=== PATIENT | female | born 1960 | race African-American/Black ===

== ENCOUNTER 2018-08-30 18:24 | Emergency (ER) | payer OTHER ==
[2018-08-30 18:52] VITALS: BP 157/87; PULSE 83; TEMP 97.8; BMI 26.6
--- NOTE | 2018-08-30 18:56 | PDOC ---
Rapid Medical Evaluation Chief Complaint: Pain Time Seen by Provider: 08/30/18 18:54 Medical Evaluation: Allergies Allergy/AdvReac Type Severity Reaction Status Date / Time No Known Allergies Allergy Verified 08/30/18 18:48 Vital Signs Temp Pulse Resp BP Pulse Ox 97.8 F 83 20 157/87 98 08/30/18 18:48 10 18:48 08/30/18 18:48 08/30/18 18:48 08/30/18 18:48 08/30/18 18:54 I have performed a brief in-person evaluation of this patient. The patient presents with a chief complaint of: right upper arm pain and stiffness which has been intermittent for 2 weeks now and unable to lift right arm. Denies trauma or injury Pertinent physical exam findings: mild tenderness to right upper arm I have ordered the following: x-ray of right humerus and shoulder The patient will proceed to the ED for further evaluation. Discharge Disposition - Diagnosis Right arm pain - Referrals Referrals: Eugenia Noland MD [Primary Care Provider] - - Patient Instructions - Post Discharge Activity
--- NOTE | 2018-08-30 20:45 | PDOC ---
History of Present Illness - General Chief Complaint: Pain Stated Complaint: RIGHT ARM PAIN Time Seen by Provider: 08/30/18 18:54 - History of Present Illness Initial Comments: 08/30/18 20:42 58-year-old female without comorbidities presents for evaluation of right shoulder pain 2 weeks without any precipitating traumatic event. She states her pain is worse at night and wakes her up. No radiation of symptoms her pain is well localized to the lateral aspect of the right shoulder and upper arm. Past History - Past Medical History Allergies/Adverse Reactions: Allergies Allergy/AdvReac Type Severity Reaction Status Date / Time No Known Allergies Allergy Verified 08/30/18 18:48 Home Medications: Ambulatory Orders NK [No Known Home Medication] 08/30/18 - Suicide/Smoking/Psychosocial Hx Smoking History: Never smoked Hx Alcohol Use: No Drug/Substance Use Hx: No Review of Systems - Review of Systems Musculoskeletal: Yes: See HPI, Joint Pain All Other Systems: Reviewed and Negative *Physical Exam - Vital Signs Last Vital Signs Temp Pulse Resp BP Pulse Ox 97.8 F 83 20 157/87 98 08/30/18 18:48 08/30/18 18:48 08/30/18 18:48 08/30/18 18:48 08/30/18 18:48 - Physical Exam Comments: 08/30/18 20:42 Cervical spine skin color and temperature are normal range of motion is full and nonpainful. There is no paracervical musculature spasm or tenderness. 5 out of 5 strength in bilateral upper extremities without gross sensorimotor deficits negative spell maneuver bilaterally Right shoulder skin color and temperature are normal range of motion is slightly limited in external rotation and abduction 5 out of 5 strength super spinatus isolation 3 out of 5 with external rotation. Internal rotation is 4 and 5. Positive impingement maneuvers no gross sensorimotor deficits she's neurovascularly intact. Upper extremity compartments are soft and nontender bilaterally. Medical Decision Making - Medical Decision Making 08/30/18 20:44 Right shoulder impingement syndrome possibly rotator cuff injury I'll have him follow-up with orthopedic surgery for further evaluation and treatment is cussed use of anti-inflammatories and Tylenol for pain control *DC/Admit/Observation/Transfer Diagnosis at time of Disposition: Right arm pain, Shoulder impingement syndrome Diagnosis at time of Disposition: (Ruled Out): Impingement syndrome, shoulder, left - Discharge Dispostion Disposition: HOME Condition at time of disposition: Stable Decision to Admit order: No - Referrals Referrals: Eugenia Noland MD [Primary Care Provider] - Mervin White MD [Staff Physician] - - Patient Instructions Printed Discharge Instructions: Shoulder Tendinopathy Additional Instructions: Please take Tylenol and Motrin as directed for pain. Return to the emergency room should symptoms worsen follow-up with orthopedic surgery in 2-3 days for further evaluation and treatment options. - Post Discharge Activity
== END 2018-08-30 20:48 | disposition home or self-care (01) ==
LOC: JERFT 18:24
DX: M75.41 Impingement syndrome of right shoulder (principal)
CPT/HCPCS: 73030-TC-RT-FY; 73060-TC-RT-FY; 99281-25

== ENCOUNTER 2019-08-21 16:29 | Emergency (ER) | payer OTHER ==
[2019-08-21 16:35] VITALS: BP 121/78; PULSE 79; TEMP 98.5; BMI 26.6
--- NOTE | 2019-08-21 16:35 | PDOC ---
Rapid Medical Evaluation Chief Complaint: Pain, Acute Time Seen by Provider: 08/21/19 16:33 Medical Evaluation: Allergies Allergy/AdvReac Type Severity Reaction Status Date / Time No Known Allergies Allergy Verified 08/21/19 16:32 08/21/19 16:34 I have performed a brief in-person evaluation of this patient. The patient presents with a chief complaint of: 2 weeks of L sided knee pain intermittently after running for a long time. Also c/o pain to the back of the knee I have ordered the following: Knee xray and sono doppler The patient will proceed to the ED for further evaluation. Discharge Disposition - Diagnosis Knee pain, acute - Referrals - Patient Instructions - Post Discharge Activity
[2019-08-21] MEDS ORDERED: KETOROLAC TROMETHAMINE 60 MG/2 ML VIAL IM ONE (16:55)
--- NOTE | 2019-08-21 17:03 | PDOC ---
History of Present Illness - General Chief Complaint: Pain, Acute Stated Complaint: KNEES PAIN Time Seen by Provider: 08/21/19 16:33 History Source: Patient - History of Present Illness Occurred: reports: other Severity: reports: moderate Upper Extremity Pain Location: left: other (knee) Past History - Past Medical History Allergies/Adverse Reactions: Allergies Allergy/AdvReac Type Severity Reaction Status Date / Time No Known Allergies Allergy Verified 08/21/19 16:32 Home Medications: Ambulatory Orders Naproxen 500 mg PO BID #30 tablet 08/21/19 CVA: No COPD: No CHF: No DVT: No - Immunization History Immunization Up to Date: Yes - Psycho Social/Smoking Cessation Hx Smoking History: Never smoked Hx Alcohol Use: No Drug/Substance Use Hx: No Review of Systems - Review of Systems Constitutional: No: Chills, Fever Respiratory: No: Shortness of Breath Cardiac (ROS): No: Chest Pain, Palpitations Musculoskeletal: Yes: Joint Pain, Joint Swelling. No: Gout *Physical Exam - Vital Signs Last Vital Signs Temp Pulse Resp BP Pulse Ox 98.5 F 79 18 121/78 98 08/21/19 16:32 08/21/19 16:32 08/21/19 16:32 08/21/19 16:32 08/21/19 16:32 - Physical Exam General Appearance: Yes: Appropriately Dressed. No: Apparent Distress HEENT: positive: Normal Voice Neck: positive: Supple Respiratory/Chest: negative: Respiratory Distress Extremity: positive: Normal Inspection, Swelling (mild swelling diffusely to L knee compared to R knee, no e/o obvious effusion, no hot, red joint), Other ( mild limp). negative: Tender, Calf Tenderness Integumentary: positive: Dry, Warm Neurologic: positive: Fully Oriented, Alert, Normal Mood/Affect Medical Decision Making - Medical Decision Making 08/21/19 16:57 59 yo F, denies any sig pmhx, here with ongoing L knee pain x2 weeks. States pain started 2 weeks ago after descending steps and jogging. Pain located to left knee diffusely, achy and worse with movement and weight bearing. Has not taken anything for the pain. Patient states she has chronic right knee pain but has never had left knee pain in the past. Has never been evaluated for her knee pain in the past per pt. Patient states she has a significant family history of arthritis with multiple family members undergoing knee replacement for same. No obvious risk factors for DVT/PE. No f/c see exam M/l MSK knee pain, i.e arthritis, overuse, strain, etc, no h/o gout, septic join and no e/o infxn today, unlikely DVT given location and duration of pain -pain control -Dc w/ orthopedic f/u Discharge - Discharge Information Problems reviewed: Yes Clinical Impression/Diagnosis: Knee pain, acute Qualifiers: Laterality: right Qualified Code(s): M25.561 - Pain in right knee Condition: Good Disposition: HOME - Additional Discharge Information Prescriptions: Naproxen 500 mg PO BID #30 tablet - Follow up/Referral - Patient Discharge Instructions Patient Printed Discharge Instructions: DI for Knee Pain Additional Instructions: The cause of your knee pain is unclear at this time but you will need further evaluation with an orthopedist. In the meantime take the naproxen as directed - Post Discharge Activity
[2019-08-21] MEDS ORDERED: KETOROLAC TROMETHAMINE 60 MG/2 ML VIAL ONE (17:04)
== END 2019-08-21 17:15 | disposition home or self-care (01) ==
LOC: JERFT 16:29
PROC: 3E0233Z Introduction of Anti-inflammatory into Muscle, Percutaneous Approach (ICD-10-PCS; principal; 2019-08-21)
DX: M25.562 Pain in left knee (principal); R26.89 Other abnormalities of gait and mobility
CPT/HCPCS: 96372; 99281-25

== ENCOUNTER 2020-05-31 16:32 | Emergency (ER) | payer OTHER ==
--- NOTE | 2020-05-31 16:42 | PDOC ---
Rapid Medical Evaluation Chief Complaint: Chest Pain Time Seen by Provider: 05/31/20 16:39 Medical Evaluation: Allergies Allergy/AdvReac Type Severity Reaction Status Date / Time No Known Allergies Allergy Verified 05/31/20 16:39 05/31/20 16:39 The patient presents for substernal chest pain for one week. States the chest pain is worse with movement. Exam: TTP of the chest wall Orders: EKG, defer labs to provider Pt to proceed to the ER for further evaluation Discharge Disposition - Diagnosis Chest wall pain - Referrals - Patient Instructions - Post Discharge Activity
[2020-05-31 16:46] VITALS: TEMP 98.6; BMI 28.1
--- NOTE | 2020-05-31 17:09 | PDOC ---
History of Present Illness - General Chief Complaint: Chest Pain Stated Complaint: CHEST PAIN Time Seen by Provider: 05/31/20 16:39 - History of Present Illness Initial Comments: Amos Leavitt is a 59 y/o female with no reported PMH presenting today with chest pain. Reports that chest pain is right parasternal and has been going on for the past month. Reports that she has been working out more over the past couple of months. Pain is reproducible. No shortness of breath/dizziness. Pain is non exertional. Describes pain as pressure like. No abdominal pain/leg swelling. No dysuria/diarrhea. No headache. PMH: none FamHx: HTN, no hx of ACS SocHx: social smoker (one cigarette with alcohol) Past History - Medical History Allergies/Adverse Reactions: Allergies Allergy/AdvReac Type Severity Reaction Status Date / Time No Known Allergies Allergy Verified 05/31/20 16:39 Home Medications: Ambulatory Orders Naproxen 500 mg PO BID #30 tablet 08/21/19 CVA: No COPD: No CHF: No DVT: No - Immunization History Immunization Up to Date: Yes - Psycho-Social/Smoking History Smoking History: Never smoked Information on smoking cessation initiated: No - Substance Abuse Hx (Audit-C & DAST Scrn) In the last yr the pt used illegal drug/Rx for NonMed reason: No Score: Yes response is considered Positive: 0 Screen Result (Positive result requires Nsg. DAST-10): Negative Review of Systems - Review of Systems Comments:: GENERAL/CONSTITUTIONAL: No fever or chills. No weakness._ HEAD, EYES, EARS, NOSE AND THROAT: No change in vision. No change in hearing. No sore throat._ CARDIOVASCULAR: Reports chest pain. No shortness of breath_ RESPIRATORY: Denies cough, hemoptysis_ GASTROINTESTINAL: No nausea, vomiting, diarrhea or constipation._ GENITOURINARY: No dysuria, frequency, or change in urination._ MUSCULOSKELETAL: No joint or muscle swelling or pain. No neck or back pain._ SKIN: No rash_ NEUROLOGIC: No headache, vertigo, loss of consciousness, or change in strength/sensation._ ENDOCRINE: No increased thirst. No abnormal weight change_ HEMATOLOGIC/LYMPHATIC: No anemia, easy bleeding, or history of blood clots._ ALLERGIC/IMMUNOLOGIC: No hives or skin allergy._ *Physical Exam - Vital Signs Last Vital Signs Temp Pulse Resp BP Pulse Ox 98.6 F 70 17 142/82 99 05/31/20 16:39 05/31/20 16:39 05/31/20 16:39 05/31/20 16:39 05/31/20 16:39 - Physical Exam GENERAL: Awake, alert, and oriented to person/place/time, in no acute distress_ HEAD: No signs of trauma, normocephalic, atraumatic _ EYES: PERRLA, EOMI, sclera anicteric, conjunctiva clear_ ENT: Hearing grossly normal, nares patent, oropharynx clear without exudates. No uvular deviation. Moist mucosa_ NECK: Normal ROM, supple, no lymphadenopathy, JVD, or masses_ LUNGS: No distress, speaks in full sentences, clear to auscultation bilaterally _ CHEST: Point TTP right parasternal with no bruising or trauma or rash. HEART: Regular rate and rhythm, normal S1 and S2, no murmurs appreciated, peripheral pulses normal and equal bilaterally._ ABDOMEN: Soft, nontender, normoactive bowel sounds. No guarding, no rebound. No masses_ EXTREMITIES: Normal inspection, Normal range of motion, no edema. No clubbing or cyanosis_ NEUROLOGICAL: Cranial nerves II through XII grossly intact. Normal speech, normal gait, no focal sensorimotor deficits _ SKIN: Warm, Dry, normal turgor, no rashes or lesions noted_ Heart Score/ECG Review - History History: Slightly suspicious - Electrocardiogram EKG: Normal - Age Age: 45-65 - Risk Factors Based on the list above the patient has:: No risk factors known - Troponin Troponin: </= normal limit - Score Heart Score - Total: 1 ED Treatment Course - LABORATORY CBC & Chemistry Diagram: 05/31/20 17:21 05/31/20 17:21 - ADDITIONAL ORDERS Additional order review: Laboratory Results 05/31/20 05/31/20 19:46 17:21 Sodium 140 Potassium 4.3 Chloride 109 H Carbon Dioxide 23 Anion Gap 8 BUN 15.7 Creatinine 1.1 Est GFR (CKD-EPI)AfAm 62.75 Est GFR (CKD-EPI)NonAf 54.14 Random Glucose 98 Calcium 9.2 Total Bilirubin 0.7 AST 20 ALT 26 Alkaline Phosphatase 81 Creatine Kinase 164 Creatine Kinase Index 1.2 CK-MB (CK-2) 2.0 Troponin I < 0.02 < 0.02 Total Protein 7.1 Albumin 3.7 05/31/20 17:21 RBC 4.10 MCV 94.4 MCHC 33.2 RDW 13.6 MPV 10.3 Neutrophils % 56.8 Lymphocytes % 32.8 Monocytes % 8.2 Eosinophils % 1.7 Basophils % 0.5 - RADIOLOGY Radiology Studies Ordered: Category Date Time Status CHEST X-RAY PORTABLE* [RAD] Stat Radiology 05/31/20 17:07 Taken Medical Decision Making - Medical Decision Making 59F no PMH presenting today with right parasternal chest pain for the past month. Reproducible. Exacerbated with movement. No infectious symptoms. DDx: likely costochondritis vs r/o ACS vs PTX -labs -cxr -ekg -trop x2 05/31/20 17:12 EKG 68 bpm, NSR, no axis deviation, OH 154, QTc 431, no ST elevation/depression. 05/31/20 17:25 CXR negative for acute intrathoracic pathology. 05/31/20 18:26 Labs reviewed. Laboratory Last Values WBC 6.1 K/mm3 (4.0-10.0) 05/31/20 17:21 RBC 4.10 M/mm3 (3.60-5.2) 05/31/20 17:21 Hgb 12.9 GM/dL (10.7-15.3) 05/31/20 17:21 Hct 38.7 % (32.4-45.2) 05/31/20 17:21 MCV 94.4 fl (80-96) 05/31/20 17:21 MCH 31.4 pg (25.7-33.7) 05/31/20 17:21 MCHC 33.2 g/dl (32.0-36.0) 05/31/20 17:21 RDW 13.6 % (11.6-15.6) 05/31/20 17:21 Plt Count 212 K/MM3 (134-434) 05/31/20 17:21 MPV 10.3 fl (7.5-11.1) 05/31/20 17:21 Absolute Neuts (auto) 3.5 K/mm3 (1.5-8.0) 05/31/20 17:21 Neutrophils % 56.8 % (42.8-82.8) 05/31/20 17:21 Lymphocytes % 32.8 % (8-40) 05/31/20 17:21 Monocytes % 8.2 % (3.8-10.2) 05/31/20 17:21 Eosinophils % 1.7 % (0-4.5) 05/31/20 17:21 Basophils % 0.5 % (0-2.0) 05/31/20 17:21 Nucleated RBC % 0 % (0-0) 05/31/20 17:21 Sodium 140 mmol/L (136-145) 05/31/20 17:21 Potassium 4.3 mmol/L (3.5-5.1) 05/31/20 17:21 Chloride 109 mmol/L (98-107) H 05/31/20 17:21 Carbon Dioxide 23 mmol/L (21-32) 05/31/20 17:21 Anion Gap 8 MMOL/L (8-16) 05/31/20 17:21 BUN 15.7 mg/dL (7-18) 05/31/20 17:21 Creatinine 1.1 mg/dL (0.55-1.3) 05/31/20 17:21 Est GFR (CKD-EPI)AfAm 62.75 05/31/20 17:21 Est GFR (CKD-EPI)NonAf 54.14 05/31/20 17:21 Random Glucose 98 mg/dL (74-106) 05/31/20 17:21 Calcium 9.2 mg/dL (8.5-10.1) 05/31/20 17:21 Total Bilirubin 0.7 mg/dL (0.2-1) 05/31/20 17:21 AST 20 U/L (15-37) 05/31/20 17:21 ALT 26 U/L (13-61) 05/31/20 17:21 Alkaline Phosphatase 81 U/L (45-117) 05/31/20 17:21 Creatine Kinase 164 U/L (26-192) 05/31/20 17:21 Troponin I < 0.02 ng/ml (0.00-0.05) 05/31/20 17:21 Total Protein 7.1 g/dl (6.4-8.2) 05/31/20 17:21 Albumin 3.7 g/dl (3.4-5.0) 05/31/20 17:21 05/31/20 21:19 Pt reassessed. Repeat trop negative. Plan to d/c home with PCP and cards f/u. All questions answered. Strict return precautions given. Pt verbalized understanding and agreement with plan. Discharge - Discharge Information Problems reviewed: Yes Clinical Impression/Diagnosis: Chest wall pain Condition: Stable Disposition: HOME - Admission No - Follow up/Referral [place] [facility] [place] [facility] [place]] Eugenia Noland MD [Primary Care Provider] - Frank Nogueira MD [Staff Physician] - - Patient Discharge Instructions Patient Printed Discharge Instructions: DI for Atypical Chest Pain, DI for Costochondritis Additional Instructions: Please make a follow up appointment with your primary care doctor and with a sponge maker (referral provided here). If you experience any new, worsening, or concerning symptoms, including worsening chest pain, shortness of breath, dizziness, pain on walking or act ivity, or any other concerns, please return to the emergency department. - Post Discharge Activity
[2020-05-31 17:35] LABS: BASO % 0.5 % (0-2.0); EOS % 1.7 % (0-4.5); HEMATOCRIT 38.7 % (32.4-45.2); HEMOGLOBIN 12.9 GM/dL (10.7-15.3); LYMPH % 32.8 % (8-40); MCH 31.4 pg (25.7-33.7); MCHC 33.2 g/dl (32.0-36.0); MEAN CELL VOLUME 94.4 fl (80-96); MEAN PLT VOLUME 10.3 fl (7.5-11.1); MONO % 8.2 % (3.8-10.2); NEUT % 56.8 % (42.8-82.8); PLATELET COUNT 212 K/MM3 (134-434); RDW 13.6 % (11.6-15.6); WHITE BLOOD COUNT 6.1 K/mm3 (4.0-10.0)
--- NOTE | 2020-05-31 17:39 | PDOC ---
Documentation entered by Che Grossman SCRIBE, acting as scribe for Alejo Patterson MD. Alejo Patterson MD: This documentation has been prepared by the Chauncey rowland Brenda, SCRIBE, under my direction and personally reviewed by me in its entirety. I confirm that the documentation accurately reflects all work, treatment, procedures, and medical decision making performed by me. Attending Attestation - Resident Resident Name: Josh Kingston - ED Attending Attestation I have performed the following: I have examined & evaluated the patient, The case was reviewed & discussed with the resident, I agree w/resident's findings & plan, Exceptions are as noted - HPI HPI: 06/07/20 18:26 59 years old no past medical history presents with chest pain x1 month coming and going reproducible worse with change in position pressure-like has been exercising recently No associated exertional component no dizziness lightheadedness nausea or diaphoresis - Physicial Exam PE: 06/07/20 18:26 ROS: A complete review of 10 out of 10 review of systems is taken and is negative apart from what is previously mentioned below and in the HPI. Vitals: Triage Vital signs reviewed General Appearance: No acute distress, well nourished well developed, Cardiac: Regular rate and rhythym, no murmurs, no rubs, no gallops, Lungs: Clear to auscultation bilateral, good air movement bilaterally, Abdomen: Soft, non distended, normal bowel sounds, non tender to palpation Extremities: Full range of motion to all extremities, no cyanosis, clubbing, or edema Skin: Warm and dry, no rashes or lesions, no rash, no petechiae Psych: Normal mood, normal affect - Medical Decision Making 06/07/20 18:26 59 years old nonischemic EKG no ST elevations Atypical chest discomfort will check 2 troponins if negative patient low risk heart score 3 We will arrange for follow-up with cardiology Findings, need for follow-up and strict return instructions discussed with patient. Heart Score/ECG Review - History History: Slightly suspicious - Electrocardiogram EKG: Non specific repolarization disturbance - Age Age: 45-65 - Risk Factors Risk Factors Heart Score: Yes Smoking History Based on the list above the patient has:: 1-2 risk factors - Troponin Troponin: </= normal limit - Score Heart Score - Total: 3 Discharge - Discharge Information Problems reviewed: Yes Clinical Impression/Diagnosis: Chest wall pain Condition: Stable Disposition: HOME - Follow up/Referral Referrals: [facility] [place] [facility] [place] [Provider Group] Eugenia Noland MD [Primary Care Provider] - Frank Nogueira MD [Staff Physician] - - Patient Discharge Instructions Patient Printed Discharge Instructions: DI for Atypical Chest Pain, DI for Costochondritis Additional Instructions: Please make a follow up appointment with your primary care doctor and with a bridge inspector (referral provided here). If you experience any new, worsening, or concerning symptoms, including worsening chest pain, shortness of breath, dizziness, pain on walking or activity, or any other concerns, please return to the emergency department. - Post Discharge Activity
[2020-05-31 18:23] LABS: ALBUMIN 3.7 g/dl (3.4-5.0); ALK PHOS 81 U/L (45-117); ANION GAP 8 MMOL/L (8-16); BILIRUBIN,TOTAL 0.7 mg/dL (0.2-1); BLOOD UREA NITROGEN 15.7 mg/dL (7-18); CALCIUM 9.2 mg/dL (8.5-10.1); CHLORIDE 109 mmol/L (98-107); CO2 23 mmol/L (21-32); CREATININE 1.1 mg/dL (0.55-1.3); GLUCOSE,RANDOM 98 mg/dL (74-106); POTASSIUM 4.3 mmol/L (3.5-5.1); SGOT/AST 20 U/L (15-37); SGPT/ALT 26 U/L (13-61); SODIUM 140 mmol/L (136-145); TOT PROT 7.1 g/dl (6.4-8.2)
[2020-05-31 21:20] VITALS: BP 133/78; PULSE 86
--- NOTE | 2020-06-02 17:35 | EKG ---
Test Reason : Blood Pressure : / mmHG Vent. Rate : 068 BPM Atrial Rate : 068 BPM P-R Int : 154 ms QRS Dur : 074 ms QT Int : 406 ms P-R-T Axes : 042 -07 021 degrees QTc Int : 431 ms NORMAL SINUS RHYTHM SEPTAL INFARCT , AGE UNDETERMINED ABNORMAL ECG NO PREVIOUS ECGS AVAILABLE Confirmed by MD Benz Edward ([id number]) on 06/02/2020 5:35:21 PM Referred By: Confirmed By:Fly Benz MD
== END 2020-05-31 21:00 | disposition home or self-care (01) ==
LOC: JER 16:32
DX: R07.89 Other chest pain (principal)
CPT/HCPCS: 36415; 71045-TC-FY; 80053; 82550; 82553; 84484; 85025; 93005; 93010; 99285-25

== ENCOUNTER 2021-02-24 13:59 | Emergency (ER) | payer OTHER ==
[2021-02-24 14:29] VITALS: BP 135/79; PULSE 77; BMI 27.3
[2021-02-24] MEDS ORDERED: LIDOCAINE 5% TOPICAL PATCH TP ONE (15:24)
[2021-02-24] MEDS ORDERED: LIDOCAINE HCL 1%, 10 MG/ML (50 mL VIAL) SQ ONE (15:27)
[2021-02-24] MEDS ORDERED: KETOROLAC TROMETHAMINE 30 MG/1 ML VIAL IM ONE (15:27)
[2021-02-24] MEDS ORDERED: LIDOCAINE HCL 1%, 10 MG/ML (20ML VIAL) ONE (15:30)
[2021-02-24] MEDS ORDERED: LIDOCAINE 5% TOPICAL PATCH ONE (15:31)
[2021-02-24] MEDS ORDERED: KETOROLAC TROMETHAMINE 30 MG/1 ML VIAL ONE (15:31)
[2021-02-24 16:57] LABS: URINE APPEARANCE CLEAR; URINE BILIRUBIN NEGATIVE (NEGATIVE); URINE COLOR YELLOW; URINE GLUCOSE (UA) NEGATIVE (NEGATIVE); URINE KETONE NEGATIVE (NEGATIVE); URINE LEUK ESTERASE NEGATIVE (NEGATIVE); URINE NITRITE NEGATIVE (NEGATIVE); URINE PROTEIN NEGATIVE (NEGATIVE); URINE UROBILINOGEN 0.2 mg/dL (0.2-1.0)
[2021-02-24] MEDS ORDERED: LIDOCAINE PATCH REMOVAL MC SCH (22:00)
== END 2021-02-24 17:20 | disposition home or self-care (01) ==
LOC: JER 13:59
PROC: 3E0233Z Introduction of Anti-inflammatory into Muscle, Percutaneous Approach (ICD-10-PCS; principal; 2021-02-24)
DX: R10.84 Generalized abdominal pain (principal)
CPT/HCPCS: 81003; 99284-25

== ENCOUNTER 2022-10-09 21:22 | Emergency (ER) | payer OTHER ==
[2022-10-09 21:26] VITALS: BP 161/90; PULSE 78; RESP 18; TEMP 98; BMI 29.0
[2022-10-10] MEDS ORDERED: ACETAMINOPHEN 325 MG TABLET (FP) PO ONE (00:31)
== END 2022-10-10 01:03 | disposition home or self-care (01) ==
LOC: JER 21:22
DX: S89.91XA Unspecified injury of right lower leg, initial encounter (principal); S89.92XA Unspecified injury of left lower leg, initial encounter; S80.01XA Contusion of right knee, initial encounter; S80.02XA Contusion of left knee, initial encounter; S09.90XA Unspecified injury of head, initial encounter; W01.0XXA Fall on same level from slipping, tripping and stumbling without subsequent striking against object, initial encounter
CPT/HCPCS: 70450-TC; 72125-TC; 72170-TC-FY; 73030-TC-LT-FY; 73552-TC-LT-FY; 73562-TC-LT-FY; 73562-TC-RT-FY; 99285-25

== ENCOUNTER 2024-08-21 04:46 | Day surgery (SDC) | payer OTHER ==
[2024-08-18 09:42] VITALS: BMI 32.9
[2024-08-21 09:41] VITALS: TEMP 97.9
[2024-08-21 11:21] VITALS: BP 131/66; PULSE 65; RESP 17
== END 2024-08-21 10:29 | disposition home or self-care (01) ==
LOC: JASU-ENDO 04:46
PROVIDERS: ATTEND Internal Medicine Gastroenterology
PROC: 0DBN8ZX Excision of Sigmoid Colon, Via Natural or Artificial Opening Endoscopic, Diagnostic (ICD-10-PCS; principal; 2024-08-21 08:45)
DX: Z12.11 Encounter for screening for malignant neoplasm of colon (principal); K63.5 Polyp of colon; K64.8 Other hemorrhoids; K57.30 Diverticulosis of large intestine without perforation or abscess without bleeding; Z86.0100 Personal history of colon polyps, unspecified
CPT/HCPCS: 88305-TC